=== PATIENT | male | born 1995 | race Caucasian/White ===

== ENCOUNTER 2017-06-21 00:55 | Emergency (ER) | payer BC ==
[2017-06-21] MEDS ORDERED: Lorazepam 2 MG/ML VIAL ONE ×2 (01:20→02:42)
--- NOTE | 2017-06-21 08:29 | RAD ---
PORTABLE CHEST 1 VIEW: Date: 06/21/17 Time: 0125 hours HISTORY: Chest pain. FINDINGS: The heart size is normal. The lungs are well expanded without confluent areas of consolidation, pneum othorax, or pleural effusions. IMPRESSION: No acute process. POS: [facility]
--- NOTE | 2017-06-27 15:36 | EKG ---
Test Reason : Blood Pressure : / mmHG Vent. Rate : 095 BPM Atrial Rate : 095 BPM P-R Int : 174 ms QRS Dur : 094 ms QT Int : 330 ms P-R-T Axes : 058 004 023 degrees QTc Int : 414 ms Normal sinus rhythm Normal ECG Confirmed by XI TORRES, SKYLAR Villarreal ([id number]), assistant editor NITA CARDENAS ([id number]) on 06/27/2017 3:36:34 PM Referred By: Confirmed By:SKYLAR LAYNE MD
== END 2017-06-21 03:15 | disposition home or self-care (01) ==
LOC: ERS 00:55
DX: T43.621A Poisoning by amphetamines, accidental (unintentional), initial encounter (principal); F41.9 Anxiety disorder, unspecified; F32.9 Major depressive disorder, single episode, unspecified; Z79.899 Other long term (current) drug therapy
CPT/HCPCS: 71045; 93005; 96374; 96376; J2060

== ENCOUNTER 2021-02-05 21:44 | Emergency (ER) | payer OTHER, BC ==
[2021-02-05] MEDS ORDERED: Morphine 4 MG/ML VIAL ONE (22:25)
[2021-02-05] MEDS ORDERED: Ketorolac Tromethamine 30 MG/ML VIAL ONE (22:25)
[2021-02-05] MEDS ORDERED: Ondansetron PF 4 MG/2 ML Vial ONE (22:25)
[2021-02-05] MEDS ORDERED: HYDROcodone/Acetaminophen 5/325 mg Tablet ONE (23:18)
== END 2021-02-05 23:37 | disposition home or self-care (01) ==
LOC: ERS 21:44
DX: S81.812A Laceration without foreign body, left lower leg, initial encounter (principal); S41.111A Laceration without foreign body of right upper arm, initial encounter; S30.810A Abrasion of lower back and pelvis, initial encounter; V23.4XXA Motorcycle driver injured in collision with car, pick-up truck or van in traffic accident, initial encounter
CPT/HCPCS: G0390; J1885; J2270; J2405